=== PATIENT | female | born 1975 | race Caucasian/White ===

== ENCOUNTER → 2017-06-10 | Outpatient (CLI) | payer OTHER ==
[~2017-06-10] MED LIST: CELEXA20 MG PO; COMPAZINE5 M1 PO; DILANTIN100 MG PO; FLEXERIL10 MG PO; Fioricet 325 MG1 TAB PO; NKHM; OXYCODONE5 MG PO; ZOVIRAX800 MG PO
[2017-06-10 11:17] LABS: BASO % 0.4 % (0.0-1.0); EOS # 0.2 10*3/uL (0.0-0.4); HEMATOCRIT 32.9 % (37.0-47.0); HEMOGLOBIN 10.1 g/dl (12.0-16.0); LYMPH # 1.2 10*3/uL (1.3-4.4); LYMPH % 16.3 % (27.0-41.0); MEAN CELL VOLUME 72.9 fl (81.0-99.0); MEAN CORPUSCULAR HGB 22.4 pg (27.0-31.0); MEAN CORPUSCULAR HGB CONC 30.7 g/dl (33.0-37.0); MEAN PLATELET VOLUME 8.7 fl (9.6-12.3); MONO # 0.3 10*3/uL (0.1-1.0); MONO % 4.1 % (3.0-9.0); NEUT # 5.8 10*3/uL (2.3-7.9); NEUT % 77.1 % (47.0-73.0); PLATELET COUNT AUTOMATED 460 10*3/uL (130-400); RED BLOOD COUNT 4.51 10*6/uL (4.10-5.10); RED CELL DISTRI WIDTH 17.5 % (0-14.5); WHITE BLOOD COUNT 7.5 10*3/uL (4.8-10.8)
[2017-06-10 11:41] LABS: ALBUMIN 3.5 gm/dl (3.1-4.5); ALKALINE PHOSPHATASE 95 U/L (45-117); BUN 11 mg/dl (7-24); CHLORIDE 106 mmol/L (98-107); CREATININE 0.57 mg/dL (0.55-1.02); POTASSIUM 4.2 mmol/L (3.5-5.1); SGOT/AST 16 IU/L (3-35); SGPT/ALT 17 U/L (12-78); SODIUM 137 mmol/L (136-145); TOTAL PROTEIN 7.9 gm/dL (6.4-8.2)
[2017-06-11 03:15] LABS: HEMATOCRIT 33.1 % (34.0-46.6); RBC 4.68 x10E6/uL (3.77-5.28); WBC 7.3 x10E3/uL (3.4-10.8)
[2017-06-11 13:08] LABS: ABSOLUTE CD 4 HELPER 253 /uL (359-1519); CD 4 POS LYMPH, % 21.1 % (30.8-58.5)
[2017-06-14 12:08] LABS: HIV-1 RNA BY PCR <20 (.)
== END | disposition home or self-care (01) ==
LOC: LAB 10:46
PROVIDERS: Internal Medicine Infectious Disease
DX: B20 Human immunodeficiency virus [HIV] disease (principal)

== ENCOUNTER 2018-09-14 19:53 | Emergency (ER) | payer OTHER ==
[~2018-09-14] VITALS: Ht 152.4 cm; Wt 63.5 kg
[2018-09-14 19:54] VITALS: BP 141/86
== END 2018-09-14 21:53 | disposition home or self-care (01) ==
LOC: ED 19:53
DX: S90.32XA Contusion of left foot, initial encounter (principal); Z98.890 Other specified postprocedural states; Z79.899 Other long term (current) drug therapy; W10.8XXA Fall (on) (from) other stairs and steps, initial encounter; Y93.89 Activity, other specified; Y92.89 Other specified places as the place of occurrence of the external cause; Y99.9 Unspecified external cause status

== ENCOUNTER 2021-10-29 13:35 | Emergency (ER) | payer OTHER ==
[~2021-10-29] VITALS: Wt 53.1 kg
[2021-10-29 13:36] VITALS: BP 144/89
== END 2021-10-29 15:15 | disposition home or self-care (01) ==
LOC: ED 13:35
DX: S00.83XA Contusion of other part of head, initial encounter (principal); Z79.899 Other long term (current) drug therapy; V49.59XA Passenger injured in collision with other motor vehicles in traffic accident, initial encounter; Y93.89 Activity, other specified; Y92.413 State road as the place of occurrence of the external cause; Y99.9 Unspecified external cause status

== ENCOUNTER → 2024-08-01 | Outpatient (CLI) | payer OTHER ==
[~2024-08-01] MED LIST changes: +ESCITALOPRAM OX10 MG PO; +HYDROXYZINE PAM25 M1 PO; +METOPROLOL SUCC25 M2 PO; +OMEPRAZOLE40 MG PO; +[UNRECOGNIZED DRUG - OTHER] PO
[2024-08-01 13:54] LABS: HEMATOCRIT 24.6 % (37.0-47.0); MEAN CELL VOLUME 62.3 fl (81.0-99.0); MEAN CORPUSCULAR HGB 16.7 pg (27.0-31.0); MEAN CORPUSCULAR HGB CONC 26.8 g/dl (33.0-37.0); PLATELET COUNT AUTOMATED 407 10*3/uL (130-400); RED BLOOD COUNT 3.95 10*6/uL (4.10-5.10); RED CELL DISTRI WIDTH 21.1 % (0-14.5); WHITE BLOOD COUNT 5.9 10*3/uL (4.8-10.8)
[2024-08-01 14:19] LABS: ACT PARTIAL THROMBO TIME 24.7 SECONDS (20.0-32.1)
[2024-08-01 14:22] LABS: MANUAL DIFF REFLEX YES
[2024-08-01 14:24] LABS: ALKALINE PHOSPHATASE 79 U/L (46-116); BUN 8 mg/dl (9-23); CHLORIDE 104 mmol/L (98-107); CHOLESTEROL 161 mg/dL (<200); FREE T4 0.96 ng/dl (0.89-1.76); LDL CHOLESTEROL 90 mg/dL (9-159); POTASSIUM 3.4 mmol/L (3.4-5.1); SGPT/ALT 11 U/L (5-49); TOTAL PROTEIN 7.3 gm/dL (6.0-8.0); TRIGLYCERIDES 83 mg/dl (<150)
[2024-08-01 14:36] LABS: VITAMIN D, 25-HYDROXY 9.7 ng/mL (30-100)
[2024-08-01 14:38] LABS: TOTAL CELLS COUNTED 100 #CELLS
[2024-08-01 14:45] LABS: SCHISTOCYTES FEW
[2024-08-01 14:52] LABS: PLATELET SUFFICIENCY HIGH (NORMAL)
[2024-08-02 15:07] LABS: LYMPHOCYTES, ABSOLUTE 1.3 x10E3/uL (0.7-3.1); WBC 5.9 x10E3/uL (3.4-10.8)
[2024-08-02 16:08] LABS: ABSOLUTE CD 4 HELPER 429 /uL (359-1519); ABSOLUTE CD8 SUPRESSOR 501 /uL (109-897); CD 8 POS LYMPH, % 38.5 % (12.0-35.5); CD4-CD8 RATIO 0.86 (0.92-3.72)
== END | disposition home or self-care (01) ==
LOC: LAB 13:22
PROVIDERS: ATTEND Internal Medicine Nephrology
DX: B20 Human immunodeficiency virus [HIV] disease (principal); F41.9 Anxiety disorder, unspecified; F32.2 Major depressive disorder, single episode, severe without psychotic features; R79.1 Abnormal coagulation profile

== ENCOUNTER 2024-08-02 10:19 | Emergency (ER) | payer OTHER ==
[~2024-08-02] VITALS: Wt 59.0 kg
[2024-08-02] VITALS (9 sets, daily range): BP systolic 122–151; BP diastolic 62–76
[~2024-08-02 10:19] MED LIST changes: -ESCITALOPRAM OX10 MG PO; -HYDROXYZINE PAM25 M1 PO; -METOPROLOL SUCC25 M2 PO; -OMEPRAZOLE40 MG PO; -[UNRECOGNIZED DRUG - OTHER] PO
[2024-08-02] MEDS ORDERED: [UNRECOGNIZED DRUG - OTHER] PO (10:37)
[2024-08-02] MEDS ORDERED: OMEPRAZOLE40 MG PO (10:37)
[2024-08-02] MEDS ORDERED: HYDROXYZINE PAM25 M1 PO (10:37)
[2024-08-02] MEDS ORDERED: ESCITALOPRAM OX10 MG PO (10:38)
[2024-08-02] MEDS ORDERED: METOPROLOL SUCC25 M2 PO (10:38)
[2024-08-02 11:10] LABS: HEMATOCRIT 25.3 % (37.0-47.0); MEAN CELL VOLUME 62.2 fl (81.0-99.0); MEAN CORPUSCULAR HGB 16.7 pg (27.0-31.0); MEAN CORPUSCULAR HGB CONC 26.9 g/dl (33.0-37.0); MEAN PLATELET VOLUME 7.9 fl (9.6-12.3); PLATELET COUNT AUTOMATED 426 10*3/uL (130-400); RED BLOOD COUNT 4.07 10*6/uL (4.10-5.10); RED CELL DISTRI WIDTH 20.9 % (0-14.5); WHITE BLOOD COUNT 8.7 10*3/uL (4.8-10.8)
[2024-08-02 11:16] LABS: MANUAL DIFF REFLEX YES
[2024-08-02 11:33] LABS: ACT PARTIAL THROMBO TIME 25.1 SECONDS (20.0-32.1)
[2024-08-02 11:39] LABS: ALKALINE PHOSPHATASE 80 U/L (46-116); BUN 9 mg/dl (9-23); CHLORIDE 104 mmol/L (98-107); POTASSIUM 3.5 mmol/L (3.4-5.1); SGPT/ALT 7 U/L (5-49); TOTAL PROTEIN 7.6 gm/dL (6.0-8.0)
[2024-08-02 11:43] LABS: BASOPHILS 1 % (0-1); TOTAL CELLS COUNTED 100 #CELLS
[2024-08-02 11:45] LABS: PLATELET SUFFICIENCY HIGH (NORMAL)
[2024-08-02 11:47] LABS: OVALOCYTES FEW
[2024-08-02 11:49] LABS: POLYCHROMASIA SLIGHT
[2024-08-02] MEDS ORDERED: SODIUM CHLORIDE 0.9% 500 ML IV ONE ×2 (13:10→16:53)
[2024-08-02 19:52] LABS: BASO % 0.5 % (0.0-1.0); EOS % 0.3 % (1.0-4.0); HEMATOCRIT 34.2 % (37.0-47.0); MEAN CORPUSCULAR HGB 19.7 pg (27.0-31.0); MEAN CORPUSCULAR HGB CONC 28.7 g/dl (33.0-37.0); MONO # 0.5 10*3/uL (0.1-1.0); MONO % 6.4 % (3.0-9.0); NEUT % 74.9 % (47.0-73.0); PLATELET COUNT AUTOMATED 382 10*3/uL (130-400); RED BLOOD COUNT 4.97 10*6/uL (4.10-5.10); RED CELL DISTRI WIDTH 26.5 % (0-14.5); WHITE BLOOD COUNT 7.9 10*3/uL (4.8-10.8)
[2024-08-02 20:03] LABS: MEAN CELL VOLUME 68.8 fl (81.0-99.0)
== END 2024-08-02 20:28 | disposition home or self-care (01) ==
LOC: ED 10:19
PROVIDERS: Internal Medicine
DX: D50.9 Iron deficiency anemia, unspecified (principal); N93.9 Abnormal uterine and vaginal bleeding, unspecified; Z79.899 Other long term (current) drug therapy; Z98.890 Other specified postprocedural states